=== PATIENT | male | born 1950 | race Caucasian/White ===

== ENCOUNTER → 2016-06-02 | Outpatient (CLI) | payer OTHER ==
[~2016-06-02] MED LIST: ALBI1INJ2 SQ; ALBU0.08 NEB; ATOR1TAB18 PO; CART180C PO; FENO145T2 PO; FLUO1TAB3 PO; FLUTI220I INH; IPRA0.02 NEB; LEVA500T PO; LISI-515 PO; METF1000 PO; METO100T PO; MSIR30 PO; THEO400T2 PO; TIZA2CAP3 PO; TOPA25TA8 PO; UMEC1AER INH; VENTAER INH
--- NOTE | 2016-06-03 00:03 | MG ---
cc: RIANNA CUMMINGS M.D. Sex: [id number] HISTORY: Hyperventilation not performed due to emphysema. Awake, drowsy, asleep, 65 year-old man, getting lost. MEDICATIONS: None listed. DESCRIPTION: An 8 Hz 60 microvolt symmetric diffuse and posterior rhythm is noted. The recording overall is synchronous and symmetric. No epileptiform or seizure activity. Photic stimulation was performed without significant posterior driving. There were no hemisphere asymmetries, no epileptiform or seizure activity is seen. IMPRESSION Normal awake EEG, no evidence for focal or diffuse abnormality. MD CODY Allen/JALIL /11:37 PM /11:57 PM
== END ==
LOC: HEEG 09:47
PROVIDERS: ATTEND Psychiatry & Neurology Neurology
DX: G40.909 Epilepsy, unspecified, not intractable, without status epilepticus (principal)
CPT/HCPCS: 95819

== ENCOUNTER 2016-09-18 09:05 | Inpatient (IN) | payer OTHER ==
[~2016-09-18] VITALS: Ht 182.9 cm; Wt 98.9 kg
[2016-09-18] VITALS (9 sets, daily range): BP systolic 102–129; BP diastolic 68–86; PULSE 69–81; RESP 16–20; TEMP 96–98.8; O2SAT 89–96
[2016-09-18 10:18] LABS: AUTOMATED NEUTROPHIL # 3.5 TH/MM3 (1.8-7.7); BASOPHIL % 0.6 % (0.0-2.0); EOSINOPHIL # 0.2 TH/MM3 (0-0.4); EOSINOPHIL % 2.9 % (0.0-4.0); HEMATOCRIT 46.5 % (39.0-51.0); HEMO FLAGS DIFF FINAL; LYMPH % 15.6 % (9.0-44.0); LYMPHOCYTE # 0.8 TH/MM3 (1.0-4.8); MEAN CELL VOLUME 84.1 FL (80.0-100.0); MEAN CORPUSCULAR HEMOGLOBIN 28.1 PG (27.0-34.0); MEAN CORPUSCULAR HGB CONC 33.4 % (32.0-36.0); NEUT % 66.9 % (16.0-70.0); PLATELET COUNT 253 TH/MM3 (150-450); RED BLOOD COUNT 5.53 MIL/MM3 (4.50-5.90); RED CELL DISTRIBUTION WIDTH 19.1 % (11.6-17.2); WHITE BLOOD COUNT 5.3 TH/MM3 (4.0-11.0)
[2016-09-18 10:26] LABS: BICARBONATE 23.7 MEQ/L (21.0-32.0); POTASSIUM 3.5 MEQ/L (3.5-5.1)
[2016-09-18 10:37] LABS: INTERNATIONAL NORMALIZED RATIO 1.1 RATIO; PROTHROMBIN TIME - PATIENT 12.2 SEC (9.8-11.6)
--- NOTE | 2016-09-18 10:42 | RADRPT ---
EXAM DATE/TIME: 09/18/2016 09:56 [facility] COMPARISON: CHEST PA & LAT, January 24, 2016, 11:52. INDICATIONS : Diabetic foot, ulceration 2nd , 3rd toe MEDICAL HISTORY : Diabetes mellitus type II. Hypertension Cardiovascular disease. SURGICAL HISTORY : None. ENCOUNTER: Initial ACUITY: 2 weeks PAIN SCORE: 6/10 LOCATION: Left toes FINDINGS: The exam demonstrates cortical destruction of the distal phalanx of the second and third digits olivia rning for osteomyelitis. No acute fracture is seen. CONCLUSION: Cortical destruction involving the distal aspect of the second and third phalanges concerning for ost eomyelitis. Matthew Messer MD on September 18, 2016 at 10:39 Board Certified Radiologist. This report was verified electronically.
[2016-09-18] MEDS ORDERED: CART120C PO (10:55)
[2016-09-18] MEDS ORDERED: MS C15TA2 PO (10:55)
[2016-09-18] MEDS ORDERED: FLUT1INH INH (10:55)
[2016-09-18] MEDS ORDERED: LAMO25CH CHEW (10:55)
--- NOTE | 2016-09-18 11:00 | PD ---
HPI . Infected left middle toe Chief Complaint: Skin Problem Time Seen by Provider: 09:50 Travel History International Travel<30 days: No Contact w/Intl Traveler<30days: No Traveled to known affect area: No History of Present Illness HPI This patient presents with the chief complaint of an infected left little toe. He was sent here by the yarn handler for probable amputation. The patient reports the onset of symptoms just a couple days ago. He does state that he's been feeling generally poorly for the last couple days. He does not know whether 90s had fevers or chills. Patient is diabetic. The patient also reports a recent history of cellulitis in the left lower extremity. He states that he took some penicillin for about 10 days and that those symptoms have now resolved and he states that he finished the penicillin about 2 days ago. He does not know whether or not the toe infection is related to the cellulitis that he had in his leg. PFSH Past Medical History Hx Anticoagulant Therapy: Yes (ASA 81 MG) Arthritis: Yes Asthma: Yes Cancer: No Cardiac Catheterization: Yes Cardiovascular Problems: Yes (HTN, CT, STENTS X 2 ) High Cholesterol: Yes Chemotherapy: No COPD: Yes Cerebrovascular Accident: Yes (CVA) Diabetes: Yes (TYPE 2) Patient Takes Glucophage: No Endocrine: Yes Genitourinary: No Hepatitis: No Hiatal Hernia: No Hypertension: Yes Immune Disorder: No Musculoskeletal: Yes Neurologic: No Psychiatric: No Reproductive: No Respiratory: Yes (COPD, EMPHYSEMA) Radiation Therapy: No Sleep Apnea: Yes Influenza Vaccination: Yes Past Surgical History Body Medical Devices: CARDIAC STENTS Cardiac Surgery: Yes (STENTS) Genitourinary Surgery: Yes (VASECTOMY) Joint Replacement: No Oral Surgery: Yes (T & A) Pacemaker: No Social History Alcohol Use: No Tobacco Use: No Substance Use: No Allergies-Medications (Allergen,Severity, Reaction): Coded Allergies: No Known Allergies (Unverified , 09/18/16) Reported Meds & Prescriptions Reported Meds & Active Scripts Active Topamax (Topiramate) 25 Mg Tab 75 Mg PO HS Reported Breo Ellipta Inh (Fluticasone/Vilanterol) 100-25 Mcg/Act Inh 1 Puff INH DAILY Use daily at the same time. Cartia Xt (Diltiazem ER 24 HR) 120 Mg Caper 180 Mg PO BID Ms Contin (Morphine Sulfate) 15 Mg Tab 60 Mg PO TID Lamotrigine 25 Mg Chew 25 Mg CHEW DAILY Morphine IR (Morphine Sulfate) 30 Mg Tab 30 Mg PO Q6HR Theophylline ER 24 HR (Theophylline) 400 Mg Tab 400 Mg PO DAILY Fluoxetine (Fluoxetine HCl) 20 Mg Tab 40 Mg PO DAILY Metoprolol Tartrate 100 Mg Tab 100 Mg PO HS Lisinopril 20 Mg Tab 20 Mg PO DAILY Metformin (Metformin HCl) 1,000 Mg Tab 1,000 Mg PO BID With meals Tanzeum 4-Pack Inj (Albiglutide) 50 Mg Pfpen 50 Mg SQ Q7D Review of Systems Except as stated in HPI: all other systems reviewed are Neg General / Constitutional: Positive: Other (feels poorly), No: Fever, Chills Skin: Positive Lesions Physical Exam Narrative GENERAL: Awake and alert and in no acute distress. SKIN: Warm and dry. The skin of the left third toe is erythematous. There is necrotic tissue on the pad of the toe was some purulent drainage. HEAD: Atraumatic. Normocephalic. EYES: Pupils equal and round. NECK: Trachea midline. CARDIOVASCULAR: Regular rate and rhythm. RESPIRATORY: No accessory muscle use. MUSCULOSKELETAL: No obvious deformities. No edema. NEUROLOGICAL: Awake and alert. No obvious cranial nerve deficits. Motor grossly within normal limits. Normal speech. PSYCHIATRIC: Appropriate mood and affect; insight and judgment normal. Data Data Last Documented VS Vital Signs Date Time Temp Pulse Resp B/P Pulse Ox O2 Delivery O2 Flow Rate FiO2 09/18/16 11:00 74 16 102/72 93 Nasal Cannula 4 09/18/16 09:12 98.8 Orders Complete Blood Count With Diff (09/18/16 09:52) Basic Metabolic Panel (Bmp) (09/18/16 09:52) Westergren Sedimentation Rate (09/18/16 09:52) C-Reactive Protein (Crp) (09/18/16 09:52) Foot, Complete ([id number]) (09/18/16 09:53) Prothrombin Time / Inr (Pt) (09/18/16 09:56) Act Partial Throm Time (Ptt) (09/18/16 09:56) Lactic Acid (09/18/16 09:56) Admit Order (Ed Use Only) (09/18/16 11:21) Labs Laboratory Tests Test 09/18/16 09/18/16 09:50 10:14 White Blood Count 5.3 TH/MM3 Red Blood Count 5.53 MIL/MM3 Hemoglobin 15.5 GM/DL Hematocrit 46.5 % Mean Corpuscular Volume 84.1 FL Mean Corpuscular Hemoglobin 28.1 PG Mean Corpuscular Hemoglobin 33.4 % Concent Red Cell Distribution Width 19.1 % Platelet Count 253 TH/MM3 Mean Platelet Volume 7.2 FL Neutrophils (%) (Auto) 66.9 % Lymphocytes (%) (Auto) 15.6 % Monocytes (%) (Auto) 14.0 % Eosinophils (%) (Auto) 2.9 % Basophils (%) (Auto) 0.6 % Neutrophils # (Auto) 3.5 TH/MM3 Lymphocytes # (Auto) 0.8 TH/MM3 Monocytes # (Auto) 0.7 TH/MM3 Eosinophils # (Auto) 0.2 TH/MM3 Basophils # (Auto) 0.0 TH/MM3 CBC Comment DIFF FINAL Differential Comment Sodium Level 137 MEQ/L Potassium Level 3.5 MEQ/L Chloride Level 104 MEQ/L Carbon Dioxide Level 23.7 MEQ/L Anion Gap 9 MEQ/L Blood Urea Nitrogen 18 MG/DL Creatinine 0.95 MG/DL Estimat Glomerular Filtration 80 ML/MIN Rate Random Glucose 115 MG/DL Calcium Level 9.6 MG/DL C-Reactive Protein 10.00 MG/DL Prothrombin Time 12.2 SEC Prothromb Time International 1.1 RATIO Ratio Activated Partial 28.0 SEC Thromboplast Time Lactic Acid Level 1.2 mmol/L MDM Medical Decision Making Medical Screen Exam Complete: Yes Emergency Medical Condition: Yes Differential Diagnosis My differential diagnosis includes but is not limited to localized wound infection, cellulitis, abscess Narrative Course Patient presents with a probable gangrenous left third toe. A septic workup has been initiated. Medicine will be consult at following the workup for admission and consultation with podiatry. CBC & BMP Diagram 09/18/16 09:50 C-reactive protein is 10.0. Last Impressions Foot X-Ray 09/18/16 0953 Signed Impressions: Service Date/Time: Sunday, September 18, 2016 09:56 - CONCLUSION: Cortical destruction involving the distal aspect of the second and third phalanges concerning for osteomyelitis. Matthew Messer MD The x-ray was independently viewed by me. Physician Communication Physician Communication Dr. Kim was consulted and will admit. Podiatry will also be consulted. Diagnosis Primary Impression: Osteomyelitis Qualified Code: M86.072 - Acute hematogenous osteomyelitis of left foot Admitting Information Admitting Physician Requests: Admit Condition: Stable Ngoc Quispe MD Sep 18, 2016 11:00
[2016-09-18] MEDS ORDERED: DEXTROSE 50% IN WATER 50 ML VIAL(D50) IV PUSH PRN (13:45)
[2016-09-18] MEDS ORDERED: GLUCAGON 1 MG/ML VIAL OTHER PRN (13:45)
[2016-09-18] MEDS: INSULIN ASPART SUPPLEMENTAL SCALE SQ SCH ×2 (17:05→21:00)
--- NOTE | 2016-09-18 17:17 | HHI.HP ---
HPI Service CP Hospitalists Primary Care Physician Non-Staff Admission Diagnosis osteomyelitis Chief Complaint: toe infection Travel History International Travel<30 Days: No Contact w/Intl Traveler <30 Da: No Traveled to Known Affected Are: No History of Present Illness Mr. Phillips is a pleasant 65 y/o male with COPD on supplemental O2 at night, CAD with hx of MD, Diabetes, HTN, and Depression presented to the ER at [facility] from podiatry office for possible osteomyelitis of his toe. Pt says he was in [place] when he developed discoloration and ulceration under the 3rd toe left foot. there has also been some ulceration on tip 2nd toe and skin sloughing on the 4rth. He started taking pcn and completed 10 days. He saw podiatry today who sent him here for possible amputation. He denies pad of lower ext;'s and denies any injury to the toes in [place]. . Review of Systems Other left foot toe ulceration/discoloraton. Past Family Social History Past Medical History CAD /MD/stents x2 HTN Hyperlipidemia Diabetes COPD on supplemental O2 at night STEVIE Chronic pain Depression/Anxiety GERD Obesity Tonsillectomy Reported Medications Topamax (Topiramate) 25 Mg Tab 75 Mg PO HS Breo Ellipta Inh (Fluticasone/Vilanterol) 100-25 Mcg/Act Inh 1 Puff INH DAILY Use daily at the same time. Cartia Xt (Diltiazem ER 24 HR) 120 Mg Caper 180 Mg PO BID Ms Contin (Morphine Sulfate) 15 Mg Tab 60 Mg PO TID Lamotrigine 25 Mg Chew 25 Mg CHEW DAILY Morphine IR (Morphine Sulfate) 30 Mg Tab 30 Mg PO Q6HR Theophylline ER 24 HR (Theophylline) 400 Mg Tab 400 Mg PO DAILY Fluoxetine (Fluoxetine HCl) 20 Mg Tab 40 Mg PO DAILY Metoprolol Tartrate 100 Mg Tab 100 Mg PO HS Lisinopril 20 Mg Tab 20 Mg PO DAILY Metformin (Metformin HCl) 1,000 Mg Tab 1,000 Mg PO BID With meals Tanzeum 4-Pack Inj (Albiglutide) 50 Mg Pfpen 50 Mg SQ Q7D Allergies: Coded Allergies: No Known Allergies (Unverified , 09/18/16) Family History NC Social History Hx of tobacco use, smoked about 1ppd x 40+ years, quit 12 years ago Denies any alcohol or illicit drug use Pt is and lives with his spouse 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 2nd toe tip ulceration. no drainage. dp and pt pulses palpable. Vital Signs Date Time Temp Pulse Resp B/P Pulse Ox O2 Delivery O2 Flow Rate FiO2 09/18/16 16:32 96.0 69 18 129/86 92 09/18/16 14:00 74 18 104/75 92 Nasal Cannula 4 09/18/16 12:00 74 18 107/71 92 Nasal Cannula 4 09/18/16 11:00 74 16 102/72 93 Nasal Cannula 4 09/18/16 10:00 78 16 116/84 94 Nasal Cannula 4 09/18/16 09:12 98.8 18 127/81 92 Nasal Cannula 4 09/18/16 09:10 98.8 81 20 127/81 89 Nasal Cannula 3 Laboratory Laboratory Tests Test 09/18/16 09/18/16 09:50 10:14 White Blood Count 5.3 Red Blood Count 5.53 Hemoglobin 15.5 Hematocrit 46.5 Mean Corpuscular Volume 84.1 Mean Corpuscular Hemoglobin 28.1 Mean Corpuscular Hemoglobin 33.4 Concent Red Cell Distribution Width 19.1 Platelet Count 253 Mean Platelet Volume 7.2 Neutrophils (%) (Auto) 66.9 Lymphocytes (%) (Auto) 15.6 Monocytes (%) (Auto) 14.0 Eosinophils (%) (Auto) 2.9 Basophils (%) (Auto) 0.6 Neutrophils # (Auto) 3.5 Lymphocytes # (Auto) 0.8 Monocytes # (Auto) 0.7 Eosinophils # (Auto) 0.2 Basophils # (Auto) 0.0 CBC Comment DIFF FINAL Differential Comment Erythrocyte Sedimentation Rate 22 Sodium Level 137 Potassium Level 3.5 Chloride Level 104 Carbon Dioxide Level 23.7 Anion Gap 9 Blood Urea Nitrogen 18 Creatinine 0.95 Estimat Glomerular Filtration 80 Rate Random Glucose 115 Calcium Level 9.6 C-Reactive Protein 10.00 Prothrombin Time 12.2 Prothromb Time International 1.1 Ratio Activated Partial 28.0 Thromboplast Time Lactic Acid Level 1.2 Result Diagram: 09/18/1650 09/18/16 0950 Assessment and Plan Problem List: (1) Osteomyelitis Status: Acute Plan: Pt with osteomyelitis and ulceration of left foot toes number 2,3 phalanges No apparent cellulitis Podiatry consulted and await surgical plans for amputation prn pain control will resume home htn/copd/dm/pain meds dvt prophylaxis. (2) CAD (coronary artery disease) Status: Chronic (3) Hyperlipidemia Status: Chronic (4) HTN (hypertension) Status: Chronic (5) Diabetes mellitus Status: Chronic (6) COPD (chronic obstructive pulmonary disease) Status: Acute Physician Certification 2 Midnight Certification Type: Admission for Inpatient Services Order for Inpatient Services 3The services are ordered in accordance with Medicare regulations or non- Medicare payer requirements, as applicable. In the case of services not specified as inpatient-only, they are appropriately provided as inpatient services in accordance with the 2-midnight benchmark. Estimated LOS (days): 3 3 days is the estimated time the patient will need to remain in the hospital, assuming treatment plan goals are met and no additional complications. Post-Hospital Plan: Home Problem Qualifiers (1) Osteomyelitis: Qualified Code: M86.072 - Acute hematogenous osteomyelitis of left foot Jarret Kim MD Sep 18, 2016 17:17
[2016-09-18] MEDS: MORPHINE SULFATE 30 MG TAB PO SCH (18:00)
[2016-09-18] MEDS ORDERED: MORPHINE SULFATE 15 MG CONTROLLED RELEASE TAB PO SCH (18:00)
[2016-09-18] MEDS: METOPROLOL TARTRATE 100 MG TAB PO SCH (21:00)
[2016-09-18] MEDS ORDERED: INSULIN ASPART SUPPLEMENTAL SCALE SQ SCH (21:00)
[2016-09-18] MEDS: DILTIAZEM-CD 180 MG CAP ER PO SCH (21:00)
[2016-09-18] MEDS: TOPIRAMATE 25 MG TAB PO SCH (21:00)
--- NOTE | 2016-09-18 21:53 | PD.CONS ---
History of Present Illness Service Podiatry Consult Requested By Reason for Consult L 3rd toe infection, L 2nd toe distal ulcer Primary Care Physician Non-Staff Diagnoses: History of Present Illness Mr. Phillips is a pleasant 65 y/o male who was sent in by Dr Knight for infection L 3rd toe. There was concern for osteomyelitis. Pt says he was in [place] when he developed discoloration and ulceration under the 3rd toe left foot. Past Family Social History Allergies: Coded Allergies: No Known Allergies (Unverified , 09/18/16) Past Medical History CAD /MA/stents x2 HTN Hyperlipidemia Diabetes COPD on supplemental O2 at night STEVIE Chronic pain Depression/Anxiety GERD Obesity Past Surgical History Tonsillectomy Active Ordered Medications Current Medications Medications (Trade) Dose Ordered Sig/Curtis Route Start Time Stop Time Status Last Admin (D50w (Vial) Inj) 25 ml UNSCH PRN IV PUSH 09/18/16 13:45 (Glucagon Inj) 1 mg UNSCH PRN OTHER 09/18/16 13:45 (Cardizem Cd) 180 mg BID PO 09/18/16 21:00 (PROzac) 40 mg DAILY PO 09/19/16 09:00 (Breo Ellipta 100-25 Inh) 1 puff DAILY INH 09/19/16 09:00 (Prinivil) 20 mg DAILY PO 09/19/16 09:00 (Lopressor) 100 mg HS PO 09/18/16 21:00 (Oramorph Sr) 60 mg TID PO 09/18/16 18:00 UNV (Msir) 30 mg Q6HR PO 09/18/16 18:00 (Jonathan-24) 400 mg DAILY PO 09/19/16 09:00 (Topamax) 75 mg HS PO 09/18/16 21:00 (LaMICtal) 25 mg DAILY PO 09/19/16 09:00 Family History NC Social History Hx of tobacco use, smoked about 1ppd x 40+ years, quit 12 years ago Denies any alcohol or illicit drug use Pt is and lives with his spouse 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 Edema and erythema present. Moderate serous drainage with necrotic ulceration to tip of toe. L 2nd tip of toe with small full-thickness ulceration 2mm diameter and no active drainage. No purulence present. Hair growth present to dorsal foot. Palpable pedal pulses. Laboratory Laboratory Tests Test 09/18/16 09/18/16 09:50 10:14 White Blood Count 5.3 Red Blood Count 5.53 Hemoglobin 15.5 Hematocrit 46.5 Mean Corpuscular Volume 84.1 Mean Corpuscular Hemoglobin 28.1 Mean Corpuscular Hemoglobin 33.4 Concent Red Cell Distribution Width 19.1 Platelet Count 253 Mean Platelet Volume 7.2 Neutrophils (%) (Auto) 66.9 Lymphocytes (%) (Auto) 15.6 Monocytes (%) (Auto) 14.0 Eosinophils (%) (Auto) 2.9 Basophils (%) (Auto) 0.6 Neutrophils # (Auto) 3.5 Lymphocytes # (Auto) 0.8 Monocytes # (Auto) 0.7 Eosinophils # (Auto) 0.2 Basophils # (Auto) 0.0 CBC Comment DIFF FINAL Differential Comment Erythrocyte Sedimentation Rate 22 Sodium Level 137 Potassium Level 3.5 Chloride Level 104 Carbon Dioxide Level 23.7 Anion Gap 9 Blood Urea Nitrogen 18 Creatinine 0.95 Estimat Glomerular Filtration 80 Rate Random Glucose 115 Calcium Level 9.6 C-Reactive Protein 10.00 Prothrombin Time 12.2 Prothromb Time International 1.1 Ratio Activated Partial 28.0 Thromboplast Time Lactic Acid Level 1.2 Result Diagram: 09/18/1650 09/18/1650 Imaging Last Impressions Foot X-Ray 09/18/16 0953 Signed Impressions: Service Date/Time: Sunday, September 18, 2016 09:56 - CONCLUSION: Cortical destruction involving the distal aspect of the second and third phalanges concerning for osteomyelitis. Matthew Messer MD Assessment and Plan Assessment and Plan Osteomyelitis L 2nd and 3rd toes NPO after midnight To OR for amputation L distal 2nd toe and L 3rd toe tomorrow Sabas Reyes DPM Sep 18, 2016 21:53
[2016-09-19] VITALS (7 sets, daily range): BP systolic 113–125; BP diastolic 65–83; PULSE 66–89; RESP 19–21; TEMP 96.3–97.5; O2SAT 89–98
[2016-09-19] MEDS: MORPHINE SULFATE 30 MG TAB PO SCH ×3 (06:00→12:23)
[2016-09-19] MEDS ORDERED: CHLORHEXIDINE GLUCONATE 2 % 1 PACK (2 CLOTHS) TOPICAL PRN (06:00)
[2016-09-19] MEDS ORDERED: POVIDONE IODINE 5% (ANTISEPSIS KIT) 4 APPLICATIONS EACH NARE PRN (06:00)
[2016-09-19] MEDS ORDERED: LACTATED RINGER'S 1000 ML IV PRN (06:00)
[2016-09-19] MEDS: INSULIN ASPART SUPPLEMENTAL SCALE SQ SCH ×3 (07:00→21:00)
[2016-09-19] MEDS ORDERED: KETAMINE HCL 500 MG/5 ML VIAL ONE ×2 (07:55→08:05)
[2016-09-19] MEDS ORDERED: FAMOTIDINE 20 MG/2 ML VIAL ONE (07:57)
[2016-09-19] MEDS ORDERED: ceFAZolin INJ 1,000 MG VIAL ONE (08:04)
[2016-09-19] MEDS ORDERED: LIDOCAINE HCL 2% 20 ML VIAL INFIL ONE (08:23)
[2016-09-19] MEDS ORDERED: FLUTICASONE 100 MCG/VILANTEROL 25 MCG INHALER INH SCH (09:00)
--- NOTE | 2016-09-19 09:04 | HHI.PR ---
Immediate Post Op Note Procedure Date: Sep 19, 2016 Pre Op Diagnosis: Osteomyelitis L 3rd toe and distal 2nd toe Post Op Diagnosis: same Surgeon: Sabas Payne DPM [employer] Help(s): Staff Procedure: Amputation L 3rd toe, amputation L distal 2nd toe Findings: Consistent with diagnosis. Patient with long history of chronic wounds L 3rd/ 2nd toes and radiographic evidence of cortical destruction consistent with osteomyelitis. Two semielliptical incisions made medially and laterally to remove L 3rd digit in disarticulation at MTP joint level and dorsally/plantarly to remove distal phalanx of L 2nd toe in disarticulation at DIP joint level. Healthy white cartilage cap present to 3rd met head and distal middle phalanx of 2nd digit, respectively. No purulence. healthy appearance to tissues in amputation site. Culture of 3rd toe amp site prior to closure. Irrigation and primary closure with 2-0 nylon suture, followed by dressing with xeroform, 4x4, abd, cast padding, godfrey. WBAT to heel only L foot in surgical shoe. Ok to d/c tomorrow if culture results negative and follow up with Dr Knight next week in clinic. Additional Information: 2g ancef IV after culture taken Complications: none Specimen(s) removed: 1. distal 2nd toe L to pathology 2. 3rd toe L to pathology 3. culture L 3rd toe amputation site Estimated blood loss: minimal Anesthesia: LMA, Local (20mL 2% lidocaine plain) Drains: None Tourniquet time (min at mmHg) 25 min @ 250mmHg Patient to: PACU Patient Condition: Good Date/Time of Procedure: SEE SURGICAL CARE RECORD Sabas Payne DPM Sep 19, 2016 09:04
[2016-09-19] MEDS ORDERED: MIDAZOLAM HCL 2 MG/2 ML VIAL ONE (09:07)
[2016-09-19] MEDS ORDERED: DO NOT ADM ANY ANTICOAGULANT DRUGS PRN (09:30)
[2016-09-19] MEDS: LISINOPRIL 20 MG TAB PO SCH (09:37)
[2016-09-19] MEDS: lamoTRIgine 25 MG TAB PO SCH (09:37)
[2016-09-19] MEDS: DILTIAZEM-CD 180 MG CAP ER PO SCH ×2 (09:37→21:30)
[2016-09-19] MEDS: FLUoxetine HCL 20 MG CAP PO SCH (09:37)
--- NOTE | 2016-09-19 09:37 | RADRPT ---
EXAM DATE/TIME: 09/19/2016 09:16 [facility] COMPARISON: FOOT LEFT COMPLETE ([id number]), September 18, 2016, 9:56. INDICATIONS : Post op left foot, third and distal second digit toe ampuation. MEDICAL HISTORY : Diabetes mellitus type II. Hypertension Cardiovascular disease. SURGICAL HISTORY : None. ENCOUNTER: Initial ACUITY: 1 day PAIN SCORE: 0/10 LOCATION: Left foot FINDINGS: No surgical changes following partial amputation of the second toe and complete amputation of third t oe are noted. Small amount of air is identified adjacent to the distal third metatarsal at the amputa tion site.Soft tissue bony structures are otherwise unremarkable. CONCLUSION: Status post amputation of the second and third toes as described. Small amount of soft tissue air adjacent to the base of the amputated third toe. No other significant abnormalities. Bennie Asencio MD on September 19, 2016 at 9:34 Board Certified Radiologist. This report was verified electronically.
[2016-09-19] MEDS: THEOPHYLLINE 200 MG EXTENDED RELEASE CAP PO SCH (09:38)
[2016-09-19] MEDS ORDERED: INFLUENZA VIRUS VACCINE (QUADRIVALENT) 0.5 ML SYR IM ONE (10:00)
[2016-09-19] MEDS ORDERED: PROPOFOL 200 MG/20 ML AMP IV ONE (10:51)
--- NOTE | 2016-09-19 12:40 | HHI.PR ---
Subjective Remarks doing ok. no complaints Objective Vitals heart reg lung cta abd s/nt ext left foot bandaged. Vital Signs Date Time Temp Pulse Resp B/P Pulse Ox O2 Delivery O2 Flow Rate FiO2 09/19/16 12:10 96.7 69 19 121/71 89 09/19/16 09:28 93 Nasal Cannula 4.00 09/19/16 09:26 77 16 117/70 92 Nasal Cannula 4 09/19/16 09:10 75 16 115/73 91 Nasal Cannula 4 09/19/16 08:58 96.8 75 16 113/66 92 Nasal Cannula 4 09/19/16 08:07 96.7 71 19 119/83 90 09/19/16 04:00 97.5 66 20 113/73 95 09/19/16 00:00 97.3 74 20 114/83 98 09/18/16 21:39 92 Nasal Cannula 4.00 09/18/16 20:00 97.8 80 18 116/68 96 09/18/16 16:32 96.0 69 18 129/86 92 09/18/16 14:00 74 18 104/75 92 Nasal Cannula 4 09/18/16 09/18/16 09/19/16 15:00 23:00 07:00 Output Total 800 ml Balance -800 ml Output Urine Total 800 ml Result Diagram: 09/18/16 0950 09/18/16 0950 A/P Problem List: (1) Osteomyelitis Status: Acute Plan: Pt with osteomyelitis and ulceration of left foot toes number 2,3 phalanges No apparent cellulitis s/p amputation of toe 3 and partial toe 2 d/c tomorrow if ok with podiatry. prn pain control will resume home htn/copd/dm/pain meds dvt prophylaxis. (2) CAD (coronary artery disease) Status: Chronic (3) Hyperlipidemia Status: Chronic (4) HTN (hypertension) Status: Chronic (5) Diabetes mellitus Status: Chronic (6) COPD (chronic obstructive pulmonary disease) Status: Acute Problem Qualifiers (1) Osteomyelitis: Qualified Code: M86.072 - Acute hematogenous osteomyelitis of left foot Jarret Kim MD Sep 19, 2016 12:40
[2016-09-19] MEDS ORDERED: MORPHINE SULFATE 30 MG TAB PO PRN (12:45)
[2016-09-19] MEDS: MORPHINE SULFATE 60 MG CONTROLLED RELEASE TAB PO SCH ×2 (14:00→18:59)
[2016-09-19] MEDS: METOPROLOL TARTRATE 100 MG TAB PO SCH (21:29)
[2016-09-19] MEDS: TOPIRAMATE 25 MG TAB PO SCH (21:30)
[2016-09-20] VITALS: BP 98/67; PULSE 70; RESP 18; TEMP 96.1; O2SAT 94
[2016-09-20 04:00] VITALS: BP 109/71; PULSE 71; RESP 18; TEMP 96.2; O2SAT 94
[2016-09-20] MEDS: MORPHINE SULFATE 60 MG CONTROLLED RELEASE TAB PO SCH (05:44)
[2016-09-20] MEDS: INSULIN ASPART SUPPLEMENTAL SCALE SQ SCH (06:27)
[2016-09-20 08:31] VITALS: BP 106/71; PULSE 69; RESP 18; TEMP 96.8; O2SAT 88
[2016-09-20] MEDS: DILTIAZEM-CD 180 MG CAP ER PO SCH (08:35)
[2016-09-20] MEDS: lamoTRIgine 25 MG TAB PO SCH (08:35)
[2016-09-20] MEDS: LISINOPRIL 20 MG TAB PO SCH (08:35)
[2016-09-20] MEDS: THEOPHYLLINE 200 MG EXTENDED RELEASE CAP PO SCH (08:36)
[2016-09-20] MEDS: FLUoxetine HCL 20 MG CAP PO SCH (08:36)
--- NOTE | 2016-09-20 09:17 | RADRPT ---
EXAM DATE/TIME: 09/20/2016 08:01 [facility] COMPARISON: No previous studies available for comparison. INDICATIONS : Left leg swelling and pain. MEDICAL HISTORY : Hypercholesterolemia. Hypertension. Chronic obstructive pulmonary disease. Cerebrovascular acciden t. Seizures. Myocardial infarction. Anticoagulant therapy, Aspirin. Emphysema. Arthritis. Diabetes. SURGICAL HISTORY : Coronary artery stent. Tonsillectomy. Vasectomy. Left foot toe removal. ENCOUNTER: Initial ACUITY: 3 days PAIN SCORE: 5/10 LOCATION: Left leg. TECHNIQUE: Venous ultrasound of the leg was performed from the inguinal ligament to the proximal calf. Real-fariha e, color Doppler and spectral tracing, compression and augmentation techniques were used. FINDINGS: There is normal compressibility of the deep venous system from the inguinal region to the proximal ca lf. No echogenic clot is seen in the lumen of the common femoral, femoral, popliteal, and posterior tibial veins. There is a normal response of the venous system to proximal and distal augmentation an d respiration. CONCLUSION: No evidence of DVT. Bennie Asencio MD on September 20, 2016 at 9:15 Board Certified Radiologist. This report was verified electronically.
[2016-09-20 09:59] VITALS: O2SAT 92
--- NOTE | 2016-09-20 10:24 | HHI.PR ---
Subjective Remarks pt eager for d/c Objective Vitals heart reg lung cta abd s/nt ext left foot wrapped heavily Vital Signs Date Time Temp Pulse Resp B/P Pulse Ox O2 Delivery O2 Flow Rate FiO2 09/20/16 09:59 92 Nasal Cannula 4.00 09/20/16 08:31 96.8 69 18 106/71 88 09/20/16 04:00 96.2 71 18 109/71 94 09/20/16 00:00 96.1 70 18 98/67 94 09/19/16 20:00 96.5 89 21 115/65 94 09/19/16 19:20 Nasal Cannula 4.00 09/19/16 16:32 96.3 67 19 125/79 94 09/19/16 12:10 96.7 69 19 121/71 89 09/19/16 09/19/16 09/20/16 14:59 22:59 06:59 Intake Total 200 ml Output Total 10 ml Balance 190 ml Intake Oral 0 ml IV Total 0 ml Other 200 ml Output Urine Total 0 ml Estimated Blood Loss 10 ml Other 0 ml # Voids 2 4 1 # Bowel Movements 1 0 0 Result Diagram: 09/18/16 0950 09/18/16 0950 A/P Problem List: (1) Osteomyelitis Status: Acute Plan: Pt with osteomyelitis and ulceration of left foot toes number 2,3 phalanges No apparent cellulitis s/p amputation of toe 3 and partial toe 2 d/c today if ok with podiatry no dvt on u/s today. pt says he leg feels much better than last night and swelling came down.....check for f/u info from podiatry. prn pain control will resume home htn/copd/dm/pain meds dvt prophylaxis. (2) CAD (coronary artery disease) Status: Chronic (3) Hyperlipidemia Status: Chronic (4) HTN (hypertension) Status: Chronic (5) Diabetes mellitus Status: Chronic (6) COPD (chronic obstructive pulmonary disease) Status: Acute Problem Qualifiers (1) Osteomyelitis: Qualified Code: M86.072 - Acute hematogenous osteomyelitis of left foot Jarret Kim MD Sep 20, 2016 10:24
--- NOTE | 2016-09-20 10:25 | HHI.DCPOC ---
Discharge Care Plan Diagnosis: (1) Osteomyelitis Goals to Promote Your Health * To prevent worsening of your condition and complications * To maintain your health at the optimal level Directions to Meet Your Goals Take your medications as prescribed Follow your dietary instruction Follow activity as directed Keep your appointments as scheduled Take your immunizations and boosters as scheduled If your symptoms worsen call your PCP, if no PCP go to Urgent Care Center or Emergency Room Smoking is Dangerous to Your Health. Avoid second hand smoke Call the 24-hour hour crisis hotline for domestic abuse at Jarret Kim MD Sep 20, 2016 10:25
[2016-09-20] MEDS ORDERED: MS C15TA2 PO (10:32)
[2016-09-20] MEDS ORDERED: MSIR30 PO (10:32)
--- NOTE | 2016-09-22 10:11 | MP ---
cc: SABAS AMADOR DPM DATE OF SURGERY 09/19/2016 INDICATIONS The patient presented to the emergency department with infection to the left third toe and ulcer chronically to the distal aspect of the second toe. He was found on MRI to have evidence of osteomyelitis in both the left third toe and the distal second toe. On the left third toe, was noted to have chronic wounds surrounding the entirety of the digit and it was red and oozing. I discussed with the patient that he may consider amputation of the left third toe and the left distal second toe secondary to radiographic evidence of infection in the areas as well as a long history of chronic wounds. He agreed to move forward with surgery for amputation of the left distal second toe and left third toe. PROCEDURE He was seen in preop holding by myself, nursing staff and Anesthesia where the correct patient side and site were all confirmed to be correct in the left foot. He was then taken to the surgical suite, placed in supine position where the left foot was prepped and draped in normal sterile fashion. Attention directed to the left third toe where two semi-elliptical incisions were utilized in order to amputate the left third digit and disarticulation of the metatarsophalangeal joint level, as well as dorsal and plantar 2 cm semi-elliptical incisions to remove the distal phalanx of the left second toe and disarticulation at the DIP joint level. Healthy white articular cartilage cap was present to both the third metatarsal head and the distal aspect of the middle phalanx to the second digit respectively. No purulence was noted. There was a healthy appearance to soft tissues in the area as well at both amputation sites. A culture was taken of the third toe amputation site prior to closure followed by irrigation and primary closure with 2-0 nylon suture followed by dressing consisting of Xeroform, 4x4s, ABD, cast padding and Ranulfo bandage. The patient tolerated procedure and anesthesia well and was taken back to the PACU with vital signs stable and vascular status intact to the remainder of the left foot. He will be weightbearing as tolerated to the left heel only in a surgical shoe and will follow up in clinic in one week. SURGEON Sabas Amador MD CONVERTING OPERATOR Staff PREOPERATIVE DIAGNOSIS Osteomyelitis left third digit and distal second digit POSTOPERATIVE DIAGNOSIS Osteomyelitis left third digit and distal second digit PROCEDURE Amputation left third toe, amputation left distal second toe ANESTHESIA LMA plus local consisting of 20 mL of 2% lidocaine plain COMPLICATIONS None PATHOLOGY 1. Distal second toe left to pathology 2. Third toe left to pathology 3. Culture left third toe amputation site to micro TOURNIQUET TIME 25 minutes at 250 mmHg CONDITION Stable to PACU. ESTIMATED BLOOD LOSS Minimal COMPLICATIONS None DISPOSITION Weightbearing as tolerated to the heel only and will follow up in clinic in one week for dressing change. Sabas CARDOZA /5:18 PM /10:09 AM
== END 2016-09-20 13:09 | disposition home or self-care (01) | DRG 617 ==
LOC: NEPC 09:05 → NEDA 11:22 → N05B 16:11
PROVIDERS: ADMIT Hospitalist; ATTEND Hospitalist
PROC: 0Y6S0Z3 Detachment at Left 2nd Toe, Low, Open Approach (ICD-10-PCS; 2016-09-19)
PROC: 0Y6U0Z0 Detachment at Left 3rd Toe, Complete, Open Approach (ICD-10-PCS; principal; 2016-09-19 08:06)
DX: E11.69 Type 2 diabetes mellitus with other specified complication (principal); M86.172 Other acute osteomyelitis, left ankle and foot; E11.621 Type 2 diabetes mellitus with foot ulcer; L97.529 Non-pressure chronic ulcer of other part of left foot with unspecified severity; I10 Essential (primary) hypertension; I25.2 Old myocardial infarction; I25.10 Atherosclerotic heart disease of native coronary artery without angina pectoris; Z95.5 Presence of coronary angioplasty implant and graft; E78.5 Hyperlipidemia, unspecified; J44.9 Chronic obstructive pulmonary disease, unspecified; G47.33 Obstructive sleep apnea (adult) (pediatric); G89.29 Other chronic pain; F32.9 Major depressive disorder, single episode, unspecified; F41.9 Anxiety disorder, unspecified; K21.9 Gastro-esophageal reflux disease without esophagitis; E66.9 Obesity, unspecified; Z68.29 Body mass index [BMI] 29.0-29.9, adult; Z87.891 Personal history of nicotine dependence
CPT/HCPCS: 73630; 80048; 82948; 83605; 85025; 85610; 85652; 85730; 86140; 87015; 87070; 87102; 87116; 87205; 87206; 88305; 88311; 93971; 99285; J0690; J2250; L3260

== ENCOUNTER 2017-05-19 13:03 | Day surgery (SDC) | payer OTHER ==
[~2017-05-19 13:03] MED LIST changes: -ALBU0.08 NEB; -ATOR1TAB18 PO; +CART120C PO; -CART180C PO; -FENO145T2 PO; +FLUT1INH INH; -FLUTI220I INH; -IPRA0.02 NEB; +LAMO25CH CHEW; -LEVA500T PO; +MS C15TA7 PO; -TIZA2CAP3 PO; -TOPA25TA8 PO; +TOPI25 PO; -UMEC1AER INH; -VENTAER INH
[2017-05-19 13:40] VITALS: BP 133/66; PULSE 75; RESP 22; TEMP 98.4; O2SAT 91
[2017-05-19] MEDS ORDERED: FENO145T2 PO (13:52)
[2017-05-19] MEDS ORDERED: ATOR80TA45 PO (13:52)
[2017-05-19] MEDS ORDERED: FISHCAP4 PO (13:52)
[2017-05-19] MEDS ORDERED: TIZA4CAP3 PO (13:52)
[2017-05-19] MEDS ORDERED: ESCI10TA PO (13:52)
--- NOTE | 2017-05-19 15:50 | RADRPT ---
EXAM DATE/TIME: 05/19/2017 14:40 [facility] COMPARISON: No previous studies available for comparison. INDICATIONS : Patient presents with osteomyelitis in need of peripheral intravenous line placement for antiobiotic administration. MEDICAL HISTORY : DC CAD High cholesterol HTN COPD Emphysema Sleep apnea Arthritis GERD Epilepsy SURGICAL HISTORY : Tonsillectomy Adneoidectomy Cardiac stents x2 Vasectomy Toe amputation Spinal stimulator ENCOUNTER: Initial ACUITY: 2 weeks PAIN SCORE: 5/10 LOCATION: Bilateral lower back FLUORO TIME: 0.2 minutes IMAGE SERIES: 1 ACCESS: Right basilic vein MEDICATION(S): 1.) 200 units Heparin IV DEVICE(S): 1.) 4 Arabic single lumen 40 cm Xcela Power PICC PROCEDURE : 1. Ultrasound guidance for venous catheterization. 2. Fluoroscopic guidance. 3. Ultrasound & fluoroscopic guided central venous Power PICC line placement. The risks, benefits and alternatives to the procedure were explained and verbal and written consent w as obtained. The site was prepped in sterile fashion. Full sterile technique was used, including ca p, mask, sterile gloves and gown and a large sterile sheet. Hand hygiene and 2% chlorhexidine prep w as utilized per protocol for cutaneous antisepsis with appropriate dry time for site. Sterile gel a nd sterile probe cover were utilized for ultrasound guidance. The skin and subcutaneous tissues wer e infiltrated with local anesthetic solution. Under direct ultrasound guidance, a suitable vein was accessed and a measuring guidewire was introduc ed and positioned in the central venous system. The ultrasound images depicting access guidance were saved and stored to PACS for permanent record. A Power Injectable PICC line was cut to prescribed length and introduced, positioned with tip at the cavoatrial junction level. The line was flushed and secured per protocol. CONCLUSION: 1. Uncomplicated central venous Power PICC line placement. 2. The PICC line can be used immediately. Chriss Heart MD on May 19, 2017 at 15:48 Board Certified Radiologist. This report was verified electronically.
== END 2017-05-19 15:30 | disposition home or self-care (01) ==
LOC: HROP 13:03 → HRIP 13:05 → HROP 15:30
PROVIDERS: ATTEND Internal Medicine
DX: M86.9 Osteomyelitis, unspecified (principal); I25.2 Old myocardial infarction; I25.10 Atherosclerotic heart disease of native coronary artery without angina pectoris; E78.00 Pure hypercholesterolemia, unspecified; I10 Essential (primary) hypertension; J44.9 Chronic obstructive pulmonary disease, unspecified; J43.9 Emphysema, unspecified; G47.30 Sleep apnea, unspecified; K21.9 Gastro-esophageal reflux disease without esophagitis; M19.90 Unspecified osteoarthritis, unspecified site; G40.909 Epilepsy, unspecified, not intractable, without status epilepticus
CPT/HCPCS: 36569; 76937; 77001; C1751; J1642

== ENCOUNTER 2018-03-10 18:32 | Inpatient (IN) ==
[2018-03-10] MEDS ORDERED: EXENATIDE MICROSPHERES 2 MG SQ SCH (21:00)
[2018-03-10] MEDS ORDERED: Morphine Sulfate 30 MG IR Tablet PO SCH (21:00)
[2018-03-10] MEDS ORDERED: Acetaminophen 325 MG Tablet PO PRN (21:09)
[2018-03-10] MEDS ORDERED: Bisacodyl 10 MG Supp RECTAL PRN (21:09)
[2018-03-10] MEDS ORDERED: Dextrose 50% in Water 50 ML Vial IV.PUSH PRN (21:11)
--- NOTE | 2018-03-10 21:21 | P.HP ---
History of Present Illness Service: [facility] Primary Care Physician: UNKNOWN Chief Complaint: Sent by podiatry for admission for amputation right big toe secondary to os History of Present Illness: History obtained from patient 67-year-old white male that has had chronic problems with osteomyelitis history of amputation he has had amputation of the second and third toes of the left foot and has had a right big toe that has been diagnosed of osteomyelitis he is undergone hyperbolic chamber therapy and IV antibiotics through PICC line with no improvement in the plan now is for amputation of the right big toe and be sent by podiatry for admission. Patient has chronic pain to the back and to the osteomyelitis which she is on chronic morphine peer has a history of COPD, hyperlipidemia, hypertension, diabetes, peripheral vascular disease, chronic oxygen for hypoxia, related to his COPD, sleep apnea, and has a CPAP machine. Patient denies any chest pain shortness of breath nausea or vomiting, symptoms related just to the foot with pain in that area. - Diagnosis (1) Osteomyelitis of toe of right foot (2) Diabetes (3) COPD (chronic obstructive pulmonary disease) (4) Hypertension (5) Hyperlipidemia Inpatient Certification: I certify that the inpatient services were ordered in accordance with Medicare regulations governing the order. This includes certification that hospital inpatient services are reasonable and necessary and in the case of services not specified as inpatient-only under 42 CFR 419.22(n), that they are appropriately provided as inpatient services in accordance to with the 2-midnight benchmark under 43 CFR 412.3(e) Estimated Total Length of Stay (Days): 3 Plans for Post Hospital Care: Not yet determined Review of Systems All other systems reviewed negative except as stated in HPI [facility] - History History Provided By: Patient, Family Member - Tobacco History Second Hand Smoke Exposure: No Smoking Status: Never smoker - Alcohol History How Often Do You Have a Drink Containing Alcohol: Monthly or less - Substance Use History Substance History: No History of Abuse - Travel History Recent Travel in the [place] Within the Last 8 Weeks: No Recent Travel Out of the Country Within the Last 8 Weeks: No - Immunization History Tetanus Immunization: <5 Years Hx Influenza Vaccine This Season: Yes Medications and Allergies Active Medications: Active Medications Acetaminophen (Tylenol) 650 mg PO Q4H PRN PRN Reason: Temp > 100.4 Albuterol (Ventolin Hfa Inh) 1 puff INH Q6H PRN PRN Reason: Shortness Of Breath Or Wheezing Albuterol (Albuterol Neb (Prn)) 1.25 mg NEB Q4HR NEB PRN PRN Reason: Shortness Of Breath Or Wheezin Atorvastatin Calcium (Lipitor) 80 mg PO DAILY [facility] Bisacodyl (Dulcolax Supp) 10 mg RECTAL DAILY PRN PRN Reason: SEVERE CONSITIPATION Dextrose (D50w Vial) 50 ml IV.PUSH UNSCH PRN PRN Reason: PER HYPOGLYCEMIA PROTOCOL Diltiazem HCl (Cardizem) 180 mg PO BID [facility] Glucagon (Glucagon Inj) 1 mg OTHER PRN PRN PRN Reason: for Hypoglycemia Protocol Ibuprofen (Motrin) 800 mg PO BID [facility] Insulin Aspart (Novolog Insulin Correctional Sugar Inj) 0 unit SQ Q6HR [place]; Protocol Metoprolol Tartrate (Lopressor) 100 mg PO HS [facility] Morphine Sulfate (Msir) 30 mg PO Q6H [facility] Morphine Sulfate (Oramorph Sr) 60 mg PO Q12H [facility] Non-Formulary Medication (Exenatide Microspheres [Bydureon Bcise]) 2 mg SQ Q7D [facility] Non-Formulary Medication (Fenofibrate [Fenofibrate]) 150 mg PO DAILY [facility] Non-Formulary Medication (Bzuhtnlacuq-Lavibhoso-Qiwdtduc [Trelegy Ellipta]) 1 inh INHALATION DAILY [facility] Non-Formulary Medication (Lisinopril [Lisinopril]) 40 mg PO DAILY [facility] Non-Formulary Medication (Metformin [Metformin]) 1,000 mg PO BID [facility] Non-Formulary Medication (Tizanidine [Tizanidine]) 4 mg PO TID [facility] Non-Formulary Medication (Topiramate [Topiramate]) 100 mg PO DAILY [facility] Ondansetron HCl (Zofran Inj) 4 mg IV.PUSH Q6H PRN PRN Reason: NAUSEA OR VOMITING Potassium Chloride (Klor-Con 10) 10 meq PO BID [facility] Sennosides (Senokot) 17.2 mg PO Q12H PRN PRN Reason: Moderate Constipation Sodium Chloride (Ns Flush) 2 ml IV.FLUSH BID [facility] Sodium Chloride (Ns Flush) 2 ml IV.FLUSH PRN PRN PRN Reason: FLUSH AFTER USING IV ACCESS Allergies Allergy/AdvReac Type Severity Reaction Status Date / Time No Known Allergies Allergy Uncoded 09/18/16 09:16 Home Medications Medication Instructions Recorded Confirmed Type albuterol sulfate 1.25 mg INHALATION Q4-6H PRN 03/10/18 03/10/18 History albuterol sulfate [Ventolin HFA] 1 puff INHALATION Q6H PRN 03/10/18 03/10/18 History atorvastatin 80 mg PO DAILY 03/10/18 03/10/18 History diltiazem HCl 180 mg PO BID 03/10/18 03/10/18 History exenatide microspheres [Bydureon 2 mg SUBCUT Q7D 03/10/18 03/10/18 History BCise] fenofibrate 150 mg PO DAILY 03/10/18 03/10/18 History dhluwuvpadu-ecogerzhc-ubidyjzp 1 inh INHALATION DAILY 03/10/18 03/10/18 History [Trelegy Ellipta] ibuprofen 800 mg PO BID 03/10/18 03/10/18 History lisinopril 40 mg PO DAILY 03/10/18 03/10/18 History metformin 1,000 mg PO BID 03/10/18 03/10/18 History metoprolol tartrate 100 mg PO HS 03/10/18 03/10/18 History morphine 30 mg PO Q6H 03/10/18 03/10/18 History morphine 60 mg PO Q12H 03/10/18 03/10/18 History potassium chloride 10 meq PO BID 03/10/18 03/10/18 History tizanidine 4 mg PO TID 03/10/18 03/10/18 History topiramate 100 mg PO DAILY 03/10/18 03/10/18 History Exam Vital signs: Intake & Output 03/10/18 03/10/18 03/11/18 06:59 18:59 06:59 Weight 97.976 kg Other: Date of Last Bowel Movement 03/10/18 Weight On Admission 97.976 kg Narrative: Blood pressure 133/95 pulse of 80 GENERAL: SKIN: Warm and dry. HEAD: Normocephalic. EYES: No scleral icterus. No injection or drainage. NECK: Supple, trachea midline. No JVD or lymphadenopathy. CARDIOVASCULAR: Regular rate and rhythm without murmurs, gallops, or rubs. RESPIRATORY: Breath sounds equal bilaterally. No accessory muscle use. GASTROINTESTINAL: Abdomen soft, non-tender, nondistended. MUSCULOSKELETAL: No cyanosis, or edema. Chronic peripheral changes to the lower extremities amputation to toes on the left foot right big toe has bandage on it at this time BACK: Nontender without obvious deformity. No CVA tenderness. Caprini VTE Risk Assessment Caprini VTE Risk Assessment: Moderate/High Risk (score >= 2) Caprini Risk Assessment Model: Point Value = 1 Point Value = 2 Point Value = 3 Point Value = 5 Age 41-60 Minor surgery BMI > 25 kg/m2 Swollen legs Varicose veins or History of unexplained or recurrent spontaneous Oral contraceptives or hormone replacement Sepsis (< 1 month) Serious lung disease, including pneumonia (< 1 month) Abnormal pulmonary function Acute myocardial infarction Congestive heart failure (< 1 month) History of inflammatory bowel disease Medical patient at bed rest Age 61-74 Arthroscopic surgery Major open surgery (> 45 min) Laparoscopic surgery (> 45 min) Malignancy Confined to bed (> 72 hours) Immobilizing plaster cast Central venous access Age >= 75 History of VTE Family history of VTE Factor V Leiden Prothrombin [id number] Lupus anticoagulant Anticardiolipin antibodies Elevated serum homocysteine Heparin-induced thrombocytopenia Other congenital or acquired thrombophilia Stroke (< 1 month) Elective arthroplasty Hip, pelvis, or leg fracture Acute spinal cord injury (< 1 month) Prophylaxis Regimen: Total Risk Factor Score Risk Level Prophylaxis Regimen 0-1 Low Early ambulation 2 Moderate Order ONE of the following: *Sequential Compression Device (SCD) *Heparin 5000 units SQ BID 3-4 Higher Order ONE of the following medications: *Heparin 5000 units SQ TID *Enoxaparin/Lovenox 40 mg SQ daily (WT < 150 kg, CrCl > 30 mL/min) *Enoxaparin/Lovenox 30 mg SQ daily (WT < 150 kg, CrCl > 10-29 mL/min) *Enoxaparin/Lovenox 30 mg SQ BID (WT < 150 kg, CrCl > 30 mL/min) AND/OR *Sequential Compression Device (SCD) 5 or more Highest Order ONE of the following medications: *Heparin 5000 units SQ TID (Preferred with Epidurals) *Enoxaparin/Lovenox 40 mg SQ daily (WT < 150 kg, CrCl > 30 mL/min) *Enoxaparin/Lovenox 30 mg SQ daily (WT < 150 kg, CrCl > 10-29 mL/min) *Enoxaparin/Lovenox 30 mg SQ BID (WT < 150 kg, CrCl > 30 mL/min) AND *Sequential Compression Device (SCD) Assessment and Plan - Assessment (1) Osteomyelitis of toe of right foot Code(s): M86.9 - Osteomyelitis, unspecified Status: Acute Plan: Plan is as per podiatry for amputation tomorrow we will have the nurses call the junior media buyer for any orders related to the (2) Diabetes Code(s): E11.9 - Type 2 diabetes mellitus without complications Status: Acute Plan: For patient's diabetes we will continue his current medicines and place him on a sliding scale with low coverage (3) COPD (chronic obstructive pulmonary disease) Code(s): J44.9 - Chronic obstructive pulmonary disease, unspecified Status: Acute Plan: Continue his COPD medications with nebulizer treatment he is also on chronic oxygen continue that is between at home 3-4 L (4) Hypertension Code(s): I10 - Essential (primary) hypertension Status: Acute Plan: Continue his blood pressure medicine his blood pressure here is a little high we will go ahead and use clonidine as necessary (5) Hyperlipidemia Code(s): E78.5 - Hyperlipidemia, unspecified Status: Acute Plan: Continue his home treatment for hyperlipidemia - Plan Further plan as case develops Code Status: Full Discussed Condition With: Patient
[2018-03-10] MEDS ORDERED: Morphine Sulfate 30 MG IR Tablet PO PRN (21:45)
[2018-03-10] MEDS: Metoprolol Tartrate 100 MG Tablet PO SCH (23:03)
[2018-03-10] MEDS: Morphine Sulfate 60 MG SR Tablet PO SCH (23:36)
[2018-03-11 00:04] LABS: Baso # (Auto) 0.1 th/mm3 (0.0-0.2); Eos # (Auto) 0.5 th/mm3 (0.0-0.4); Hematocrit 46.5 % (39.0-51.0); Lymph # (Auto) 1.2 th/mm3 (1.0-4.8); Lymph % (Auto) 18.3 % (9.0-44.0); Mean Corpuscular HGB Conc 32.2 % (32.0-36.0); Mean Corpuscular Hemoglobin 28.4 pg (27.0-34.0); Mean Corpuscular Volume 88.4 fL (80.0-100.0); Mean Platelet Volume 8.1 fL (7.0-11.0); Mono # (Auto) 0.7 th/mm3 (0.0-0.9); Mono % (Auto) 9.7 % (0.0-8.0); Neut # (Auto) 4.3 th/mm3 (1.8-7.7); Platelet Count 198 th/mm3 (150-450); Red Blood Count 5.26 mil/mm3 (4.50-5.90); Red Cell Distribution Width 19.2 % (11.6-17.2); White Blood Count 6.7 th/mm3 (4.0-11.0)
[2018-03-11 00:12] LABS: INR 1.3 Ratio; Prothrombin Time 12.8 sec (9.8-11.6)
[2018-03-11 00:24] LABS: Calcium 8.6 mg/dL (8.5-10.1); Carbon Dioxide 30.4 meq/L (21.0-32.0); Potassium 3.8 meq/L (3.5-5.1)
[2018-03-11] MEDS: Insulin NovoLOG Aspart Correctional Sugar Inj SQ SCH ×4 (01:02→17:49)
[2018-03-11] MEDS ORDERED: [UNRECOGNIZED DRUG - OTHER] INH SCH (09:00)
[2018-03-11] MEDS ORDERED: Non-Formulary Drug (Fluticasone-Umeclidin-Vilanter [Trelegy Ellipta] 1 INH) INHALATION SCH (09:00)
[2018-03-11] MEDS: Topiramate 100 MG Tablet PO SCH (09:31)
[2018-03-11] MEDS: Lisinopril 20 MG Tablet PO SCH (09:32)
[2018-03-11] MEDS: Fenofibrate 48 MG Tablet PO SCH (09:33)
--- NOTE | 2018-03-11 11:25 | XR ---
EXAM DATE: 03/11/2018 11:06 AM EST AGE/SEX: 67 years / Male INDICATIONS: Shortness of breath. CLINICAL DATA: This is the patient's initial encounter. Patient reports that signs and symptoms have been present for 1 day and indicates a pain score of 0/10. MEDICAL/SURGICAL HISTORY: . Hypercholesterolemia. Hypertension. Chronic obstructive pulmonary d isease. Cerebrovascular accident. Seizures. Myocardial infarction. Anticoagulant therapy, Aspirin. Em physema. Arthritis. Diabetes. . Coronary artery stent. Tonsillectomy. Vasectomy. Left foot toe sofia francy. COMPARISON: [facility], 01/24/2016. . FINDINGS: Patchy airspace disease is present in both lungs. This has progressed with moderate peribronchial thi ckening in both lung bases. The heart is enlarged. Poor vascularity is normal. Moderate hyperinflatio n is evident. CONCLUSION: Compared to the previous study there is increasing interstitial edema and cardiomegaly. There is mode rate hyperinflation. Hyperinflation could mask significant congestive failure. Electronically signed by: Alcides Messer MD Board Certified Radiologist 03/11/2018 11:23 AM EST
[2018-03-11] MEDS: Morphine Sulfate 60 MG SR Tablet PO SCH ×2 (12:15→22:44)
[2018-03-11] MEDS ORDERED: Bupivacaine 0.25% Inj 50 ML MDV Vial ONE (20:03)
[2018-03-11] MEDS ORDERED: Ketamine Inj 50 MG/5 ML Syringe IV.PUSH ONE (20:04)
--- NOTE | 2018-03-11 21:29 | P.CONPOD ---
History of Present Illness Service: podiatry Consult date: 03/11/18 Reason for Consult: right hallux chronic wound, infection Primary Care Provider: UNKNOWN Chief Complaint: Sent by podiatry for admission for amputation right big toe secondary to os History of Present Illness: Patient has long history of ulcer right hallux and has been too medically unstable to do surgery as outpatient. His primary care physician would not clear him for outpatient surgery, so he came in for amputation right hallux. Review of Systems All other systems reviewed negative except as stated in HPI [facility] - History History Provided By: Patient, Family Member - Tobacco History Second Hand Smoke Exposure: No Smoking Status: Never smoker - Alcohol History How Often Do You Have a Drink Containing Alcohol: Monthly or less - Substance Use History Substance History: No History of Abuse - Travel History Recent Travel in the [place] Within the Last 8 Weeks: No Recent Travel Out of the Country Within the Last 8 Weeks: No - Immunization History Tetanus Immunization: <5 Years Hx Influenza Vaccine This Season: Yes Medications and Allergies Active Medications: Active Medications Acetaminophen (Tylenol) 650 mg PO Q4H PRN PRN Reason: Temp > 100.4 Albuterol (Ventolin Hfa Inh) 1 puff INH Q6H PRN PRN Reason: Shortness Of Breath Or Wheezing Albuterol (Albuterol Neb (Prn)) 1.25 mg NEB Q4HR NEB PRN PRN Reason: Shortness Of Breath Or Wheezin Atorvastatin Calcium (Lipitor) 80 mg PO DAILY [facility] Last Admin: 03/11/18 09:33 Dose: 80 mg Bisacodyl (Dulcolax Supp) 10 mg RECTAL DAILY PRN PRN Reason: SEVERE CONSITIPATION Dextrose (D50w Vial) 50 ml IV.PUSH UNSCH PRN PRN Reason: PER HYPOGLYCEMIA PROTOCOL Diltiazem HCl (Cardizem) 180 mg PO BID [facility] Last Admin: 03/11/18 09:31 Dose: 180 mg Fenofibrate (Tricor) 48 mg PO DAILY [facility] Last Admin: 03/11/18 09:33 Dose: 48 mg Glucagon (Glucagon Inj) 1 mg OTHER PRN PRN PRN Reason: for Hypoglycemia Protocol Insulin Aspart (Novolog Insulin Correctional Sugar Inj) 0 unit SQ Q6HR [facility]; Protocol Last Admin: 03/11/18 17:49 Dose: Not Given Lisinopril (Prinivil) 40 mg PO DAILY [facility] Last Admin: 03/11/18 09:32 Dose: 40 mg Metformin HCl (Glucophage) 1,000 mg PO BIDPC [facility] Last Admin: 03/11/18 17:10 Dose: Not Given Metoprolol Tartrate (Lopressor) 100 mg PO HS [facility] Last Admin: 03/10/18 23:03 Dose: 100 mg Morphine Sulfate (Oramorph Sr) 60 mg PO Q12H [facility] Last Admin: 03/11/18 12:15 Dose: 60 mg Morphine Sulfate (Msir) 30 mg PO Q6H PRN PRN Reason: PAIN SCALE 1 TO 10 Non-Formulary Medication (Exenatide Microspheres [Bydureon Bcise]) 2 mg SQ Q7D [facility] Ondansetron HCl (Zofran Inj) 4 mg IV.PUSH Q6H PRN PRN Reason: NAUSEA OR VOMITING Pt:Trelegy Ellipta 0 each INH DAILY [facility] Potassium Chloride (Klor-Con 10) 10 meq PO BID [facility] Last Admin: 03/11/18 09:33 Dose: 10 meq Sennosides (Senokot) 17.2 mg PO Q12H PRN PRN Reason: Moderate Constipation Sodium Chloride (Ns Flush) 2 ml IV.FLUSH BID [facility] Last Admin: 03/11/18 09:34 Dose: 2 ml Sodium Chloride (Ns Flush) 2 ml IV.FLUSH PRN PRN PRN Reason: FLUSH AFTER USING IV ACCESS Tizanidine HCl (Zanaflex) 4 mg PO TID [facility] Last Admin: 03/11/18 17:49 Dose: 4 mg Topiramate (Topamax) 100 mg PO DAILY [facility] Last Admin: 03/11/18 09:31 Dose: 100 mg Allergies Allergy/AdvReac Type Severity Reaction Status Date / Time No Known Allergies Allergy Uncoded 09/18/16 09:16 Home Medications Medication Instructions Recorded Confirmed Type albuterol sulfate 1.25 mg INHALATION Q4-6H PRN 03/10/18 03/10/18 History albuterol sulfate [Ventolin HFA] 1 puff INHALATION Q6H PRN 03/10/18 03/10/18 History atorvastatin 80 mg PO DAILY 03/10/18 03/10/18 History diltiazem HCl 180 mg PO BID 03/10/18 03/10/18 History exenatide microspheres [Bydureon 2 mg SUBCUT Q7D 03/10/18 03/10/18 History BCise] fenofibrate 150 mg PO DAILY 03/10/18 03/10/18 History bflwmxakrox-luejymjot-gkafosfu 1 inh INHALATION DAILY 03/10/18 03/10/18 History [Trelegy Ellipta] ibuprofen 800 mg PO BID 03/10/18 03/10/18 History lisinopril 40 mg PO DAILY 03/10/18 03/10/18 History metformin 1,000 mg PO BID 03/10/18 03/10/18 History metoprolol tartrate 100 mg PO HS 03/10/18 03/10/18 History morphine 30 mg PO Q6H 03/10/18 03/10/18 History morphine 60 mg PO Q12H 03/10/18 03/10/18 History potassium chloride 10 meq PO BID 03/10/18 03/10/18 History tizanidine 4 mg PO TID 03/10/18 03/10/18 History topiramate 100 mg PO DAILY 03/10/18 03/10/18 History Physical Exam Vital signs: Vital Signs 03/11/18 00:00 03/11/18 04:00 03/11/18 06:21 Temperature 97.8 F 97.6 F Pulse Rate 70 60 Respiratory Rate 18 18 Blood Pressure 113/89 108/73 Pulse Oximetry 80 L 84 L 90 L 03/11/18 08:00 03/11/18 12:00 03/11/18 16:30 Temperature 98.1 F 97.8 F 97.6 F Pulse Rate 70 70 69 Respiratory Rate 16 20 20 Blood Pressure 121/90 117/81 114/80 Pulse Oximetry 81 L 82 L 82 L 03/11/18 18:50 03/11/18 18:55 03/11/18 19:00 Temperature 97.9 F Pulse Rate 75 69 67 Respiratory Rate 16 16 12 Blood Pressure 114/74 119/83 Pulse Oximetry 57 L 83 L 90 L 03/11/18 19:15 03/11/18 19:30 03/11/18 19:45 Temperature Pulse Rate 69 66 66 Respiratory Rate 22 18 18 Blood Pressure 119/79 118/81 120/82 Pulse Oximetry 89 L 91 L 93 L 03/11/18 20:19 Temperature Pulse Rate 69 Respiratory Rate 22 Blood Pressure 129/83 Pulse Oximetry 89 L Intake & Output 03/11/18 03/11/18 03/12/18 06:59 18:59 06:59 Weight 97.976 kg Other: Date of Last Bowel Movement 03/10/18 Weight On Admission 97.976 kg Narrative: Right hallux with ulcer to plantar interphalangeal joint area 1cm diameter with fibrotic base. No purulence noted. Mild edema to digit. Sensation intact. Warm skin temperature. Results - Labs CBC & Chem 7: 03/10/18 23:43 03/10/18 23:43 Laboratory Results - last 24 hr 03/10/18 03/10/18 03/10/18 23:43 23:43 23:43 WBC 6.7 RBC 5.26 Hgb 15.0 Hct 46.5 MCV 88.4 MCH 28.4 MCHC 32.2 RDW 19.2 H Plt Count 198 MPV 8.1 Neut % (Auto) 64.0 Lymph % (Auto) 18.3 [place] % (Auto) 9.7 H Eos % (Auto) 7.0 H Baso % (Auto) 1.0 Neut # (Auto) 4.3 Lymph # (Auto) 1.2 [place] # (Auto) 0.7 Eos # (Auto) 0.5 H Baso # (Auto) 0.1 WBC Differential . Differential Comment Auto diff final PT 12.8 H INR 1.3 Sodium 140 Potassium 3.8 Chloride 105 Carbon Dioxide 30.4 Anion Gap 5 BUN 22 H Creatinine 1.09 Estimated GFR 68 L POC Glucose Random Glucose 146 H Calcium 8.6 03/11/18 03/11/18 03/11/18 00:54 06:09 09:30 WBC RBC Hgb Hct MCV MCH MCHC RDW Plt Count MPV Neut % (Auto) Lymph % (Auto) [place] % (Auto) Eos % (Auto) Baso % (Auto) Neut # (Auto) Lymph # (Auto) [place] # (Auto) Eos # (Auto) Baso # (Auto) WBC Differential Differential Comment PT INR Sodium Potassium Chloride Carbon Dioxide Anion Gap BUN Creatinine Estimated GFR POC Glucose 105 94 104 Random Glucose Calcium 03/11/18 03/11/18 12:20 17:48 WBC RBC Hgb Hct MCV MCH MCHC RDW Plt Count MPV Neut % (Auto) Lymph % (Auto) [place] % (Auto) Eos % (Auto) Baso % (Auto) Neut # (Auto) Lymph # (Auto) [place] # (Auto) Eos # (Auto) Baso # (Auto) WBC Differential Differential Comment PT INR Sodium Potassium Chloride Carbon Dioxide Anion Gap BUN Creatinine Estimated GFR POC Glucose 93 82 Random Glucose Calcium - Imaging Impressions Chest X-Ray 03/11/18 10:45 CONCLUSION: Compared to the previous study there is increasing interstitial edema and cardiomegaly. There is moderate hyperinflation. Hyperinflation could mask significant congestive failure. Assessment and Plan - Assessment (1) Osteomyelitis of toe of right foot Code(s): M86.9 - Osteomyelitis, unspecified Status: Acute Plan: NPO TO OR for amputation right great toe. Ok to discharge day home after surgery
--- NOTE | 2018-03-11 21:42 | P.BOP ---
- Preoperative Diagnosis (1) Osteomyelitis of toe of right foot - Postoperative Diagnosis (1) Osteomyelitis of toe of right foot Date of procedure: 03/11/18 Procedure: 1. amputation right hallux Right hallux disarticulated at metatarsophalangeal joint level. Healthy bleeding tissue at margins with no sign of infection present. Healthy white cartilage cap noted to 1st metatarsal head. Irrigation and closure with 3-0 vicryl and 3-0 nylon. Dressing with xeroform, 4x4, abd pads, cast padding, godfrey. No tourniquet utilized 2g ancef IV preop DISPOSITION: Weightbearing as tolerated right foot in surgical shoe Ok to discharge tomorrow and follow up in clinic next week for dressing change. Anesthesia: MAC, local (30mL 0.25% marcaine plain) Surgeon: Sabas Payne DPM Cutter Grind Tool Technician: staff Estimated blood loss (mL): 10 Pathology: other (1. right hallux) Condition: stable
[2018-03-11] MEDS ORDERED: Metoprolol Tartrate 25 MG Tablet PO SCH (22:04)
[2018-03-11] MEDS ORDERED: Chlorhexidine Gluconate 2% 1 Pack (2 Cloths) TOPICAL ONE (22:04)
--- NOTE | 2018-03-11 22:04 | XR ---
EXAM DATE: 03/11/2018 9:53 PM EST AGE/SEX: 67 years / Male INDICATIONS: Post op foot surgery. CLINICAL DATA: This is the patient's initial encounter. Patient reports that signs and symptoms have been present for 1 day and indicates a pain score of 1/10. MEDICAL/SURGICAL HISTORY: Diabetes mellitus type II. None. COMPARISON: No prior exams available for comparison. FINDINGS: There is amputation of the great toe. Moderate degenerative change in the foot. No acute fracture. CONCLUSION: Right great toe amputation. Electronically signed by: Vito Leroy MD Board Certified Radiologist 03/11/2018 10:03 PM EST
[2018-03-11] MEDS: Metoprolol Tartrate 100 MG Tablet PO SCH (22:44)
[2018-03-11] MEDS ORDERED: Sodium Chlor 0.9% Inj 500 ML IV.SIG SCH (23:00)
[2018-03-12] MEDS: Insulin NovoLOG Aspart Correctional Sugar Inj SQ SCH ×3 (01:05→13:08)
[2018-03-12] MEDS: Morphine Sulfate 60 MG SR Tablet PO SCH (10:07)
[2018-03-12] MEDS: Fenofibrate 48 MG Tablet PO SCH (10:08)
[2018-03-12] MEDS: Lisinopril 20 MG Tablet PO SCH (10:08)
[2018-03-12] MEDS: Topiramate 100 MG Tablet PO SCH (10:09)
[2018-03-12 12:59] VITALS: BP 125/73; PULSE 80; RESP 18; TEMP 98.2; O2SAT 93
--- NOTE | 2018-03-12 13:24 | P.DS ---
DS: Providers Date of admission: 03/10/18 18:32 Primary care physician: UNKNOWN Brief History from admission: History obtained from patient 67-year-old white male that has had chronic problems with osteomyelitis history of amputation he has had amputation of the second and third toes of the left foot and has had a right big toe that has been diagnosed of osteomyelitis he is undergone hyperbolic chamber therapy and IV antibiotics through PICC line with no improvement in the plan now is for amputation of the right big toe and be sent by podiatry for admission. Patient has chronic pain to the back and to the osteomyelitis which she is on chronic morphine peer has a history of COPD, hyperlipidemia, hypertension, diabetes, peripheral vascular disease, chronic oxygen for hypoxia, related to his COPD, sleep apnea, and has a CPAP machine. Patient denies any chest pain shortness of breath nausea or vomiting, symptoms related just to the foot with pain in that area. DS: Diagnosis Discharge Diagnosis (1) Osteomyelitis of toe of right foot: Status: Acute DS: Summary Osteomyelitis of toe of right foot S/P amputation right hallux with Dr. Payne 03/11/18 Weightbearing as tolerated right foot in surgical shoe Cleared for discharge per podiatry follow up in clinic next week for dressing change. Diabetes For patient's diabetes we will continue his current medicines and place him on a sliding scale with low coverage COPD (chronic obstructive pulmonary disease) Continue his COPD medications with nebulizer treatment he is also on chronic oxygen continue that is between at home 3-4 L Hypertension Continue his blood pressure medicine his blood pressure here is a little high we will go ahead and use clonidine as necessary Hyperlipidemia Continue his home treatment for hyperlipidemia Time Spent with Patient Total time spent providing and/or coordinating discharge services: Quality: VTE Deep Vein Thrombosis/Pulmonary Embolism Present on Admission: No Exam Narrative Exam Narrative: GENERAL: This is a well-nourished, well-developed patient, in no apparent distress. CARDIOVASCULAR: Regular rate and rhythm RESPIRATORY: Clear to auscultation. Breath sounds equal bilaterally. GASTROINTESTINAL: Abdomen soft, non-tender, nondistended. Normal active bowel sounds MUSCULOSKELETAL: Extremities without clubbing, cyanosis, or edema. post-op dressing right foot dry surgical shoe in place NEURO: Alert & Oriented x4 to person, place, time, situation. Moves all ext x4 Results Pending studies at discharge: Pending at discharge 03/12/18 Surgical [PTH] Routine Labs on day of discharge: Labs from last 24 hours 03/12/18 03/11/18 13:04 17:48 POC Glucose 128 H 82 Impressions ITS Impressions Foot X-Ray 03/11/18 00:00 CONCLUSION: Right great toe amputation. Chest X-Ray 03/11/18 10:45 CONCLUSION: Compared to the previous study there is increasing interstitial edema and cardiomegaly. There is moderate hyperinflation. Hyperinflation could mask significant congestive failure. Discharge Plan Discharge Disposition Patient Disposition: Discharge Home Discharge Condition Condition: Stable Discharge Order Discharge Orders: Discharge Order (Routine); Ordered 03/12/18 Ordered By: Starr Brian Discharge Details Anticipated Discharge Date: 03/12/18 Physicians Team Primary Care Provider: UNKNOWN, Attending Provider: Dominic Naranjo Rxs /Orders / Referrals /Forms Prescriptions: Continue atorvastatin 80 mg Tablet 80 mg PO DAILY RF: 0 morphine 60 mg Tablet Extended Release 60 mg PO Q12H RF: 0 morphine 30 mg Tablet 30 mg PO Q6H RF: 0 metformin 1,000 mg Tablet 1,000 mg PO BID RF: 0 tizanidine 4 mg Capsule 4 mg PO TID RF: 0 fenofibrate 150 mg Capsule 150 mg PO DAILY RF: 0 exenatide microspheres [Bydureon BCise] 2 mg/0.85 mL Auto-Injector 2 mg SUBCUT Q7D RF: 0 ibuprofen 800 mg Tablet 800 mg PO BID RF: 0 metoprolol tartrate 100 mg Tablet 100 mg PO HS RF: 0 potassium chloride 10 mEq Tablet Extended Release 10 meq PO BID RF: 0 lisinopril 40 mg Tablet 40 mg PO DAILY RF: 0 diltiazem HCl 90 mg Tablet 180 mg PO BID RF: 0 topiramate 100 mg Capsule,Extended Release 24hr 100 mg PO DAILY RF: 0 albuterol sulfate 2.5 mg /3 mL (0.083 %) Solution For Nebulization 1.25 mg INHALATION Q4-6H PRN (Reason: Shortness Of Breath Or Wheezing) RF: 0 albuterol sulfate [Ventolin HFA] 90 mcg/actuation Hfa Aerosol Inhaler 1 puff INHALATION Q6H PRN (Reason: Shortness Of Breath Or Wheezing) RF: 0 mwcptdiuyin-nzdivlqmd-pjzxaxgx [Trelegy Ellipta] 100-62.5-25 mcg Blister With Device 1 inh INHALATION DAILY RF: 0 Referrals: Sabas Payne DPM [Physician] - See Instructions (Follow up with podiatry in 1 week for evaluation and dressing change ) UNKNOWN, [Primary Care Provider] - See Instructions (Follow up with PCP Dr Chan in 1 week) Discharge Instructions Patient Printed Instructions: Toe Amputation (DC)
--- NOTE | 2018-03-12 13:28 | P.PNIM ---
Subjective Interval history: LATE ENTRY NOTE FOR 03/11/18 note from 03/11/18 did NOT save in [facility]. Pt with No new clinical complaints. Physical Exam Vital signs: Last Vital Signs Temp 98.2 F 03/12/18 12:00 Pulse 80 03/12/18 12:00 Resp 18 03/12/18 12:00 BP 125/73 03/12/18 12:00 Pulse Ox 93 L 03/12/18 12:00 Narrative: GENERAL: This is a well-nourished, well-developed patient, in no apparent distress. CARDIOVASCULAR: Regular rate and rhythm without murmurs, gallops, or rubs. RESPIRATORY: Clear to auscultation. Breath sounds equal bilaterally. No wheezes , rales, or rhonchi. GASTROINTESTINAL: Abdomen soft, non-tender, nondistended. Normal active bowel sounds MUSCULOSKELETAL: swelling at right great toe with ulcer at plantar aspect NEURO: Alert & Oriented x4 to person, place, time, situation. Moves all ext x4 Results Labs CBC & Chem 7: 03/10/18 23:43 03/10/18 23:43 Assessment and Plan Assessment (1) Osteomyelitis of toe of right foot: Code(s): M86.9 - Osteomyelitis, unspecified Status: Acute Plan - previous amputation left 2nd and third toes - Pt with chronic osteomyelitis of right great toe - No improvement with IV antibiotics and hyperbaric chamber - Pt to undergo amputation of right great toe with Dr. Payne 2) DM2 - SSI 3) COPD - oxygen dependent 4) HTN - continue outpt regimen Progress Note: Quality VTE Deep Vein Thrombosis/Pulmonary Embolism Present on Admission: No
--- NOTE | 2018-03-12 19:29 | ECG ---
Date Performed: 03/11/2018 Time Performed: 19:56:04 PTAGE: 67 years EKG: Sinus rhythm WITH FIRST DEGREE AV BLOCK BORDERLINE RIGHT AXIS DEVIATION NONSPECIFIC ST-T CHANGE Compared to previ ous tracing, axis is more rightward. AK interval is more prolonged. ABNORMAL ECG PREVIOUS TRACING : 01/23/2016 11.14 DOCTOR: Jarret Guaman Interpretating Date/Time 03/12/2018 19:27:31
== END 2018-03-12 14:34 | disposition home or self-care (01) | DRG 617 ==
LOC: NEPFCDU 18:32
PROVIDERS: ADMIT Hospitalist; ATTEND Hospitalist